=== PATIENT | male | born 1930 | race Caucasian/White ===

== ENCOUNTER 2017-12-28 03:46 | Observation (INO) ==
[2017-12-28] MEDS ORDERED: NITROGLYCERIN 0.4 MG SUBLINGUAL TABLET SL PRN (03:50)
[2017-12-28] MEDS ORDERED: SALINE FLUSH 10ml SYRINGE IVF PRN (03:50)
[2017-12-28] MEDS ORDERED: NITROGLYCERIN 2% OINTMENT 1gm PACKET TRANSDERMA ONE (03:55)
--- NOTE | 2017-12-28 04:01 | Emergency Department Report ---
Chest Pain HPI - General Chief Complaint: Chest Pain Stated Complaint: C.P Time Seen by Provider: 12/28/17 03:48 Source: patient, family, EMS Mode of arrival: EMS Limitations: no limitations - History of Present Illness HPI narrative: Patient awoke around 2:30 AM with a severe burning pressure in the center of his chest, atypical of anything he's had before. Patient took 2 nitroglycerin at home with no relief, but EMS states that the nitroglycerin were old. After one nitroglycerin in route, patient's pain went from a 7 down to a 5 out of 10, but he states he still having the burning pressure centrally substernal. Patient has a history of heart catheter secondary to unstable angina 4 weeks ago , one LAD lesion was ballooned and had a drug-eluting stent placed without complication. Patient has known coronary disease, but has no GERD/gastritis/reflux to his knowledge - Related Data Home Medications Medication Instructions Recorded Confirmed Amlodipine [Norvasc] 5 mg PO BID 12/06/17 12/28/17 Hydralazine HCl 50 mg PO TID 12/06/17 12/28/17 Lisinopril [Prinivil] 40 mg PO DAILY 12/06/17 12/28/17 Vit C/Vit E/Lutein/Min/[place]-3 1 each PO DAILY 12/06/17 12/28/17 [Ocuvite Softgel] B12/Levomefolate Calcium/B-6 1 each PO DAILY 12/21/17 12/28/17 [Foltx Tablet] Previous Rx's Medication Instructions Recorded Aspirin *EC* [Ecotrin] 81 mg PO DAILY #30 tab 12/07/17 Atorvastatin [Lipitor] 40 mg PO HS #30 tab 12/07/17 CloNIDine [Catapres] 0.1 mg PO BID #30 tab 12/07/17 Metoprolol Tartrate [Lopressor] 25 mg PO BIDWM #60 tab 12/07/17 Ticagrelor [Brilinta] 90 mg PO BID #190 tab 12/07/17 Allergies Allergy/AdvReac Type Severity Reaction Status Date / Time orange Allergy Intermediate Nausea Verified 12/28/17 04:22 Review of Systems All systems: reviewed and negative except as stated PFSH Patient Stated Medical History Angina Yes Shingles Yes Coronary artery disease Medical History Updates: High blood pressure Surgical History: Bilateral inguinal herniarraphy. Bilateral cataract ectraction. Heart catheter/LAD stent, November 2017 - Social History Smoking status: Never smoker Substance use type: does not use Alcohol intake frequency: does not drink Housing: house Household members: none Current occupational status: retired Current residence: Apartment/Private Home Physical Exam - Limitations Limitations: no limitations - General General appearance: alert - Normal Exams: Head:: Normocephalic without trauma Eyes:: Pupils are PERRLA w/ EOMI, No scleral icterus, irritation, or foreign bodies noted ENMT:: No facial trauma, nasal exudates, pharyngeal erythema, or exudates are noted Neck:: Full range of motion, without adenopathy, JVD, bruits or thyromegaly Chest/Respirations:: Clear all mackey, with good airflow, and symmetry bilaterally Cardiovascular:: Regular rate and rhythm, without murmur or gallop, Pulses 2+ all extremities, capillary refill, <2 seconds all extremities Abdomen:: Bowel sounds positive, soft, non-tender, non-distended, no hepatosplenomegaly, masses or bruits noted Lymphatic:: No lymphadenopathy, or lymphedema noted Musculoskeletal:: No tenderness, or deformity noted, good range of motion, all extremities Integumentary:: No rashes, hives, or bruising noted, hair and nails, without abnormality Neurological:: Patient is alert, and oriented, cranial nerves, motor/sensory/ cerebellar, exams w/o gross deficits, to observation Psychiatric:: Patient exhibits, appropriate attention, emotion and affect Course Vital Signs Temperature 97.9 F 12/28/17 03:46 Pulse Rate 76 12/28/17 03:46 Respiratory Rate 20 12/28/17 03:46 Blood Pressure 157/78 H 12/28/17 03:46 Pulse Oximetry 97 12/28/17 03:46 Temperature 97.9 F 12/28/17 03:46 Pulse Rate 79 12/28/17 04:40 Respiratory Rate 15 12/28/17 04:40 Blood Pressure 123/59 12/28/17 04:40 Pulse Oximetry 96 12/28/17 04:40 Chest Pain - MDM Narrative Medical decision making narrative: EKG shows normal sinus rhythm without ischemia, ectopy, or infarction. Ears unchanged from prior EKGs Patient is given 1 additional nitroglycerin, and 1 inch of Nitropaste was placed on chest - patient is much improved, but persists with 4 out of 10 chest pain. CBC - n CMP - n CXR - n Troponin -n Patient is given 4 mg morphine IV for continued chest pressure/burning Case is discussed with Dr. Conway - we will admit the patient for observation to CCU, although this in all likelihood represents a noncardiac cause, patient does have significant risk factors. Patient is given morphine 4 mg and Zantac 300 milligrams in the ER for persistent chest pain. - Lab Data Result diagrams: 12/28/17 03:58 12/28/17 03:58 Lab Results 12/28/17 12/28/17 Range/Units 03:58 03:58 WBC 11.1 H (4.5-11.0) T/MM3 RBC 4.38 L (4.50-5.90) M/MM3 Hgb 14.5 (13.5-17.5) GM/DL Hct 42.3 (41-53) % MCV 96.6 (80-100) UM3 MCH 33.1 (26-34) UUG MCHC 34.3 (31-37) GM/DL RDW Std Deviation 45.0 (36.9-50.2) FL Plt Count 394 D (130-400) T/MM3 MPV 9.2 L (9.4-12.4) UM3 Immature Gran % (Auto) Not performed Neut % (Auto) Not performed Lymph % (Auto) Not performed Rich % (Auto) Not performed Eos % (Auto) Not performed Baso % (Auto) Not performed Neut # (Auto) Not performed Lymph # (Auto) Not performed Rich # (Auto) Not performed Eos # (Auto) Not performed Baso # (Auto) Not performed Abs Immat Gran (auto) Not performed Neutrophils % (Manual) 66.0 (33-66) % Lymphocytes % (Manual) 24.0 (23-45) % Monocytes % (Manual) 7.0 (0-9.0) % Eosinophils % (Manual) 3.0 (0-4) % Neutrophils # (Manual) 7.3 (1.8-7.7) T/MM3 Lymphocytes # (Manual) 2.7 (1-4.8) T/MM3 Monocytes # (Manual) 0.8 (0-0.8) T/MM3 Eosinophils # (Manual) 0.3 (0-0.5) T/MM3 RBC Morph Comment Normal Turbidity < 20 (0-20) Sodium 143 (134-144) MEQ/L Potassium 4.2 (3.6-5) MEQ/L Chloride 104 (98-107) MEQ/L Carbon Dioxide 25 (22-30) MEQ/L Anion Gap 14 (5-15) MEQ/L BUN 30.0 H (9-20) MG/DL Creatinine 1.4 (0.8-1.5) mg/dL GFR Calculation 48 BUN/Creatinine Ratio 21 (6-26) RATIO Glucose 100 (75-110) MG/DL Calculated Osmolality 281 H (261-280) MOSM/KG Calcium 9.5 (8.4-10.2) MG/DL Total Bilirubin 0.40 (0.20-1.30) MG/DL Icterus Index < 2 (0-7) AST 30 (17-59) U/L ALT 34 (1-50) U/L Alkaline Phosphatase 126 (38-126) U/L Troponin I < 0.012 (0-0.12) ng/ml Total Protein 8.0 (6.3-8.2) g/dL Albumin 4.1 (3.5-5.0) g/dL Globulin 3.9 H (2.4-3.6) G/DL Albumin/Globulin Ratio 1.1 (1.1-2.2) RATIO Specimen Hemolysis < 15 (0-25) Disposition Clinical Impression: Chest pain Qualifiers: Chest pain type: precordial pain Qualified Code(s): R07.2 - Precordial pain Disposition: [place] [facility] [place]: Improved Prescriptions: No Action Amlodipine [Norvasc] 5 mg PO BID Hydralazine HCl 50 mg PO TID Lisinopril [Prinivil] 40 mg PO DAILY Atorvastatin [Lipitor] 40 mg PO HS #30 tab CloNIDine [Catapres] 0.1 mg PO BID #30 tab Metoprolol Tartrate [Lopressor] 25 mg PO BIDWM #60 tab Ticagrelor [Brilinta] 90 mg PO BID #190 tab B12/Levomefolate Calcium/B-6 [Foltx Tablet] 1 each PO DAILY Vit C/Vit E/Lutein/Min/[place]-3 [Ocuvite Softgel] 1 each PO DAILY Aspirin *EC* [Ecotrin] 81 mg PO DAILY #30 tab Referrals: Ranjit Pelaez MD [Family Provider] - - Seen By: physician
[2017-12-28] MEDS ORDERED: NS 1,000 ML IV ONE (04:14)
[2017-12-28] MEDS ORDERED: MORPHINE SULFATE 4mg INJECTION IVP ONE (04:44)
[2017-12-28] MEDS ORDERED: RANITIDINE 150 MG TABLET PO ONE (04:48)
[2017-12-28] MEDS ORDERED: MORPHINE SULFATE 4mg INJECTION IVP PRN (04:49)
[2017-12-28 05:48] VITALS: BMI 24.0
[2017-12-28] MEDS ORDERED: HYDRALAZINE 25 MG TABLET PO SCH (08:00)
[2017-12-28] MEDS ORDERED: MULTI-VIT + MINERAL (Opti-gen) TABLET PO SCH (09:00)
[2017-12-28] MEDS ORDERED: TICAGRELOR 90 MG TABLET PO SCH (09:00)
[2017-12-28] MEDS ORDERED: LISINOPRIL 40 MG TABLET PO SCH (09:00)
[2017-12-28] MEDS ORDERED: PYRIDOXINE 100mg TABLET PO SCH (09:00)
[2017-12-28] MEDS ORDERED: AMLODIPINE 5 MG TABLET PO SCH (09:00)
[2017-12-28] MEDS ORDERED: ASPIRIN 81 MG CHEWABLE TABLET PO SCH (09:00)
--- NOTE | 2017-12-28 09:00 | XRay Report ---
Indication: central chest pain PROCEDURE: XR chest 1V: Encounter: Initial Comparison: December 06, 2017 Findings: The lungs are stable in appearance without new focal airspace consolidation. There is no pleural effusion or pneumothorax. The heart size, pulmonary vascularity and mediastinal contours are unchanged. IMPRESSION: Stable appearance of the chest without acute cardiopulmonary disease. .
--- NOTE | 2017-12-28 10:51 | Cardiology History & Physical ---
History of Present Illness Chief complaint: chest pain HPI: Checo is a 87 year old male who is known to Dr. Conway with a history of CAD with recent PEDRO of LAD, following [place] and HTN who began having burning sternal chest pain at 0300 this morning with no associated symptoms. He reportedly has been compliant with dual antiplatelet therapy. He was seen by Dr. 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 He denies recent illness, fever, chills, sore throat, cough, dyspnea, palpitations, N/V/D, dysuria. Review of Systems - Constitutional Constitutional: Present: as per HPI - EENMT Eyes: Present: as per HPI - Cardiovascular Cardiovascular: Present: chest pain. Absent: palpitations, syncope, dyspnea on exertion, orthopnea, edema, heart murmur Rhythm: Present: abnormal rhythm Vascular: Absent: pedal edema - Respiratory Respiratory: Absent: cough, dyspnea on exertion - Gastrointestinal Gastrointestinal: Present: as per HPI. Absent: abdominal pain, constipation, diarrhea, nausea, vomiting - Genitourinary Genitourinary: Absent: dysuria - Neurological Neurological: Present: dizziness - Endocrine Endocrine: Present: palpitations PFSH Patient Stated Medical History Cataracts Yes: REMOVED Angina Yes Coronary Artery Disease Yes Hypertension Yes Other Musculoskeletal Yes: SOME ARTHRITIS Shingles Yes Medical History Updates: High blood pressure Surgical History: Bilateral inguinal herniarraphy. Bilateral cataract ectraction. Heart catheter/LAD stent, November 2017 Family History: Mother - HTN - Social History Smoking status: Never smoker Substance use type: does not use Alcohol intake frequency: does not drink Housing: house Household members: none Current occupational status: retired Current residence: Apartment/Private Home Medications Home Medications Medication Instructions Recorded Confirmed Type Amlodipine [Norvasc] 5 mg PO BID 12/06/17 12/30/17 History Hydralazine HCl 50 mg PO TID 12/06/17 12/30/17 History Lisinopril [Prinivil] 40 mg PO DAILY 12/06/17 12/30/17 History Vit C/Vit E/Lutein/Min/[place]-3 1 each PO DAILY 12/06/17 12/30/17 History [Ocuvite Softgel] Aspirin *EC* [Ecotrin] 81 mg PO DAILY #30 tab 12/07/17 12/30/17 Rx Atorvastatin [Lipitor] 40 mg PO HS #30 tab 12/07/17 12/30/17 Rx CloNIDine [Catapres] 0.1 mg PO BID #30 tab 12/07/17 12/30/17 Rx Metoprolol Tartrate [Lopressor] 25 mg PO BIDWM #60 tab 12/07/17 12/30/17 Rx Ticagrelor [Brilinta] 90 mg PO BID #190 tab 12/07/17 12/30/17 Rx B12/Levomefolate Calcium/B-6 1 each PO DAILY 12/21/17 12/30/17 History [Foltx Tablet] Nitroglycerin [Nitrostat] 0.4 mg SL Q5MIN3 PRN #25 tab 12/28/17 12/30/17 Rx Isosorbide Mononitrate ER [Imdur] 30 mg PO BID #60 tab 12/30/17 Rx Allergies Allergy/AdvReac Type Severity Reaction Status Date / Time orange Allergy Intermediate Nausea Verified 12/30/17 05:28 Exam Vital signs: Temperature 98.2 F 12/28/17 08:00 Pulse Rate 75 12/28/17 08:00 Respiratory Rate 19 12/28/17 07:00 Blood Pressure 125/70 12/28/17 07:00 Pulse Oximetry 96 12/28/17 07:00 - Constitutional no acute distress, well nourished, cooperative - Routine HEENT Exam Head: Present: normocephalic ENT: Present: mucous membranes moist - Routine Neck Exam Absent: JVD, carotid bruit - Routine Chest/Breast/Axilla Exam Chest wall: Absent: tenderness - Routine Respiratory Exam Present: CTA bilaterally. Absent: rales, wheezes - Routine Cardiovascular Exam Present: RRR, no murmur - Routine Abdominal Exam Present: soft, normoactive bowel sounds - Routine Extremities Exam Present: no edema - Routine Skin Exam Present: intact, dry, warm - Routine Neurological Exam Present: alert, oriented X3 - Routine Psychiatric Exam Present: normal affect, normal thought process Results 12/28/17 03:58 12/28/17 03:58 Cardiac Enzymes 12/28/17 Range/Units 09:58 Troponin I < 0.012 (0-0.12) ng/ml Intake and Output 12/27/17 12/28/17 12/28/17 22:59 06:59 14:59 Intake Total 315 / 315 Output Total 360 / 360 Balance 315 / 315 -360 / -360 Intake: IV 315 / 315 Ns 1,000 ml @ 250 mls/hr IV . 315 / 315 Q4H ONE Rx#:[id number] Oral 0 / 0 Output: Urine 360 / 360 Other: Urine Appearance Clear Urine Color Yellow Weight 182 lb 8.684 oz 184 lb 1.376 oz Patient Weight 12/29/17 06:59 Weight 184 lb 1.376 oz - Imaging and Cardiology Echo: report reviewed Cardiac cath: report reviewed Imaging & Cardiology Narrative: Date of Exam: 12/28/17 Ordering Provider: Marcell Lezama MD Type of Exam(s): XR chest 1V Reason for Exam(s): central chest pain Indication: central chest pain PROCEDURE: XR chest 1V: Encounter: Initial Comparison: December 06, 2017 Findings: The lungs are stable in appearance without new focal airspace consolidation. There is no pleural effusion or pneumothorax. The heart size, pulmonary vascularity and mediastinal contours are unchanged. IMPRESSION: Stable appearance of the chest without acute cardiopulmonary disease. 12/28/17 11:53 EKG interpretations - Dysrhythmias Sinus rhythms and dysrhythmias: sinus rhythm - Blocks, axis, hypertrophy, ST abn AV and intraventricular conduction: 1 AV block Hospital Course This is a general summary of the patient's hospital course. For more details refer to the complete medical record. Time spent with patient: 25 - 35 minutes Resuscitation Status: Full Code Assessment and Plan - Attestation Attestation Narrative: 01/01/18 12:59 Recommendation After examining the patient I agree with the above assessment. I am involved in the formulation of the patient's plan of care. - Assessment and Plan (1) Chest pain Status: Acute Sternal "burning" type chest pain. - Stent to LAD 12/06/17 - Has been taking Aspirin and Brilinta faithfully - EKG without ischemic changes - Troponin negative X2 - Not likely cardiac etiology due to lack of objective evidence of ischemia (2) Essential (primary) hypertension Status: Chronic Continue Home antihypertensive medications (3) Atherosclerotic heart disease of [place] coronary artery with unstable angina pectoris Status: Chronic - Assessment and Plan Chest pain: Sternal "burning" type chest pain. - Stent to LAD 12/06/17 - Has been taking Aspirin and Brilinta faithfully - EKG without ischemic changes - Troponin negative X2 - Not likely cardiac etiology due to lack of objective evidence of ischemia HTN: Continue Home antihypertensive medications
[2017-12-28] MEDS ORDERED: AMLODIPINE 10 MG TABLET PO SCH (11:00)
[2017-12-28] MEDS ORDERED: HYDRALAZINE 50 MG TABLET PO SCH (11:00)
[2017-12-28 12:02] VITALS: TEMP 98.3
[2017-12-28 16:14] VITALS: BP 129/69; PULSE 58; RESP 24; O2SAT 97
[2017-12-28] MEDS ORDERED: ATORVASTATIN 40 MG TABLET PO SCH (21:00)
--- NOTE | 2017-12-29 11:49 | Discharge Summary ---
<Tiffany Kinney - Last Filed: 12/29/17 11:46> Discharge Information Date of admission: 12/28/17 05:14 Attending Physician: Deandre Conway MD Primary care physician: Ranjit Pelaez MD Consults: 12/28/17 - Discharge Diagnosis (1) Chest pain Status: Acute (2) Essential (primary) hypertension Status: Chronic (3) Atherosclerotic heart disease of [place] coronary artery with unstable angina pectoris Status: Chronic CAD, HTN, HLD History of Present Illness HPI: Checo is a 87 year old male who is known to Dr. Conway with a history of CAD with recent PEDRO of LAD, following [place] and HTN who began having burning sternal chest pain at 0300 this morning with no associated symptoms. He reportedly has been compliant with dual antiplatelet therapy. He was seen by Dr. 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 He denies recent illness, fever, chills, sore throat, cough, dyspnea, palpitations, N/V/D, dysuria. Hospital Course This is a general summary of the patient's hospital course. For more details refer to the complete medical record. Hospital course: Chest pain: Sternal "burning" type chest pain. - Stent to LAD 12/06/17 - Has been taking Aspirin and Brilinta faithfully - EKG without ischemic changes - Troponin negative X2 - Not likely cardiac etiology due to lack of objective evidence of ischemia HTN: Continue Home antihypertensive medications Time spent with patient: less than 15 minutes Resuscitation Status: Full Code Exam Vital signs: Temperature 98.3 F 12/28/17 12:00 Pulse Rate 58 L 12/28/17 15:00 Respiratory Rate 24 12/28/17 15:00 Blood Pressure 129/69 12/28/17 15:00 Pulse Oximetry 97 12/28/17 15:00 - Constitutional no acute distress, well nourished, cooperative - Routine HEENT Exam Head: Present: normocephalic ENT: Present: mucous membranes moist - Routine Neck Exam Present: carotid bruit (right). Absent: JVD - Routine Chest/Breast/Axilla Exam Chest wall: Absent: tenderness - Routine Respiratory Exam Present: CTA bilaterally. Absent: rales, wheezes - Routine Cardiovascular Exam Present: RRR, no murmur - Routine Abdominal Exam Present: soft - Routine Extremities Exam Present: no edema - Routine Skin Exam Present: intact, dry, warm - Routine Neurological Exam Present: alert, oriented X3 - Routine Psychiatric Exam Present: normal affect, normal thought process Results 12/28/17 03:58 12/28/17 03:58 - Imaging and Cardiology Imaging & Cardiology Narrative: Date of Exam: 12/28/17 Ordering Provider: Marcell Lezama MD Type of Exam(s): XR chest 1V Reason for Exam(s): central chest pain Indication: central chest pain PROCEDURE: XR chest 1V: Encounter: Initial Comparison: December 06, 2017 Findings: The lungs are stable in appearance without new focal airspace consolidation. There is no pleural effusion or pneumothorax. The heart size, pulmonary vascularity and mediastinal contours are unchanged. IMPRESSION: Stable appearance of the chest without acute cardiopulmonary disease. 12/29/17 11:47 - EKG Interpretation EKG: sinus rhythm Discharge Plan - Med Rec/Dispo Referrals/Follow Up: Deandre Conway MD [Physician] - [facility] Instructions: Chest Pain (DC) Prescriptions: New Nitroglycerin [Nitrostat] 0.4 mg SL Q5MIN3 PRN #25 tab PRN Reason: Chest Pain Continue Amlodipine [Norvasc] 5 mg PO BID Hydralazine HCl 50 mg PO TID Lisinopril [Prinivil] 40 mg PO DAILY Atorvastatin [Lipitor] 40 mg PO HS #30 tab CloNIDine [Catapres] 0.1 mg PO BID #30 tab Metoprolol Tartrate [Lopressor] 25 mg PO BIDWM #60 tab Ticagrelor [Brilinta] 90 mg PO BID #190 tab B12/Levomefolate Calcium/B-6 [Foltx Tablet] 1 each PO DAILY Vit C/Vit E/Lutein/Min/[place]-3 [Ocuvite Softgel] 1 each PO DAILY Aspirin *EC* [Ecotrin] 81 mg PO DAILY #30 tab No Action Isosorbide Mononitrate ER [Imdur] 30 mg PO BID #60 tab - Disposition 01 Discharged Home, Self-Care - Dismissal Complete Discharge Instructions are:: Complete <Deandre Conway - Last Filed: 01/01/18 13:00> Discharge Information Date of admission: 12/28/17 05:14 Attending Physician: Deandre Conway MD Primary care physician: Ranjit Pelaez MD - Discharge Diagnosis (1) Chest pain Status: Acute (2) Essential (primary) hypertension Status: Chronic (3) Atherosclerotic heart disease of [place] coronary artery with unstable angina pectoris Status: Chronic Hospital Course This is a general summary of the patient's hospital course. For more details refer to the complete medical record. Exam Vital signs: Temperature 98.3 F 12/28/17 12:00 Pulse Rate 58 L 12/28/17 15:00 Respiratory Rate 24 12/28/17 15:00 Blood Pressure 129/69 12/28/17 15:00 Pulse Oximetry 97 12/28/17 15:00 Results 12/28/17 03:58 12/28/17 03:58 Attestation Narriative - Attestation Attestation Narrative: 01/01/18 13:00 Recommendation After examining the patient I agree with the above assessment. I am involved in the formulation of the patient's plan of care.
== END 2017-12-28 15:20 | disposition home or self-care (01) ==
LOC: CCU 03:46 → ED 03:46 → CCU 05:40
PROVIDERS: ADMIT Internal Medicine Cardiovascular Disease; ATTEND Internal Medicine Cardiovascular Disease